=== PATIENT | male | born 1995 | race American Indian/Alaskan Native ===

== ENCOUNTER 2018-11-22 21:45 | Emergency (ER) | payer SELFPAY ==
[2018-11-22 22:18] VITALS: BP 150/85
== END 2018-11-23 00:59 | disposition left against medical advice (07) ==
LOC: ED 21:45
DX: R30.0 Dysuria (principal); Z53.21 Procedure and treatment not carried out due to patient leaving prior to being seen by health care provider

== ENCOUNTER 2018-11-27 22:18 | Emergency (ER) | payer SELFPAY ==
--- NOTE | 2018-11-27 22:50 | Emergency Department Report ---
ED Male HPI - General Chief complaint: Urogenital-Male Stated complaint: PAINFUL URINATING Time Seen by Provider: 11/27/18 22:48 Source: patient Mode of arrival: Ambulatory Limitations: No Limitations - History of Present Illness Initial comments: This is a 23-year-old male reports that he was exposed to chlamydia from his girlfriend. He says she tested positive and was treated and sent him to be treated. He denies any penile discharge report reports that he has some burning. Denies any abdominal or back pain. Denies any fever or chills. Den ies any blood in his urine. MD Complaint: other (exposure to chlamydia) Onset/Timin Radiation: none Severity scale (0 -10): 0 denies: discharge, swelling, mass, rash, urinary retention, blood in urine, dysuria, fever, nausea/vomiting, incontinence - Related Data Sexually active: Yes (history) Allergies Allergy/AdvReac Type Severity Reaction Status Date / Time niacin Allergy Hives Verified 11/22/18 22:18 ED Review of Systems ROS: Stated complaint: PAINFUL URINATING Other details as noted in HPI Constitutional: denies: chills, fever ENT: denies: throat pain Respiratory: denies: cough, shortness of breath Cardiovascular: denies: chest pain, palpitations, edema, syncope Gastrointestinal: denies: abdominal pain, nausea, vomiting Genitourinary: other (exposure to chlamydia). denies: urgency, dysuria, frequency, hematuria, discharge Musculoskeletal: denies: back pain, arthralgia, myalgia Skin: denies: rash Neurological: denies: headache ED Past Medical Hx - Past Medical History Previous Medical History?: No - Surgical History Past Surgical History?: No - Family History Family history: no significant - Social History Smoking Status: Current Every Day Smoker Substance Use Type: None ED Physical Exam - General Limitations: No Limitations General appearance: alert, in no apparent distress - Head Head exam: Present: atraumatic, normocephalic, normal inspection - Eye Eye exam: Present: normal appearance, PERRL, EOMI Pupils: Present: normal accommodation - ENT ENT exam: Present: normal exam, normal orophraynx, mucous membranes moist - Neck Neck exam: Present: normal inspection, full ROM. Absent: tenderness, lymphadenopathy - Respiratory Respiratory exam: Present: normal lung sounds bilaterally. Absent: respiratory distress, chest wall tenderness - Cardiovascular Cardiovascular Exam: Present: regular rate, normal rhythm, normal heart sounds - GI/Abdominal GI/Abdominal exam: Present: soft, normal bowel sounds. Absent: distended, tenderness, rigid - Extremities Exam Extremities exam: Present: normal inspection, full ROM, normal capillary refill, other (No cce. + 2 pulses in all extremities, no neurovascular compromise). Absent: tenderness, pedal edema, joint swelling - Back Exam Back exam: Present: normal inspection, full ROM, other (M elicited N difficu lties O away that he no chronic profile but no). Absent: tenderness, CVA tenderness (R), CVA tenderness (L) ED Course Vital Signs 11/27/18 22:28 Temperature 98.5 F Pulse Rate 98 H Respiratory 18 Rate Blood Pressure 141/62 O2 Sat by Pulse 100 Oximetry - Reevaluation(s) Reevaluation #1: 11/27/18 23:49 Patient treated for gonorrhea and chlamydia in emergency room with Rocephin and azithromycin. After observation, he had no adverse reaction so he was discharged home in stable condition. ED Medical Decision Making - Medical Decision Making This is a 23-year-old male here for STD treatment after his girlfriend told him that she was treated for chlamydia. He is here to be treated. Patient was given azithromycin 1 g by mouth to treat chlamydia and Rocephin 250 mg IM for gonorrhea. I discussed with him that he needs to practice safe sex and follow up with [facility] or [facility] in 7-10 days for STD testing. Patient agreed and discharged home in stable condition. Critical care attestation.: If time is entered above; I have spent that time in minutes in the direct care of this critically ill patient, excluding procedure time. ED Disposition Clinical Impression: Exposure to STD Disposition: DC-01 TO HOME OR SELFCARE Is pt being admited?: No Does the pt Need Aspirin: No Condition: Stable Instructions: Chlamydia Infection (ED), Sexually Transmitted Diseases (ED), Safe Sex (ED) Additional Instructions: Please practice safe sex Do not have any sexual activity for the next 2 weeks and within the next 7-10 days please go to [facility] to get STD check to make sure that you do not have STD. You were treated for gonorrhea and chlamydia in emergency room. Referrals: [facility] [Outside] - 7-10 days [facility] [Outside] - 7-10 days Forms: Work/School Release Form(ED)
[2018-11-27] MEDS ORDERED: ROCEPHIN IM ONE (23:29)
[2018-11-27] MEDS ORDERED: XYLOCAINE 1% MPF 5 mL INFILTRATI ONE (23:29)
[2018-11-27] MEDS ORDERED: ZITHROMAX PO ONE (23:29)
[2018-11-29 12:59] VITALS: BP 141/62
== END 2018-11-27 23:53 | disposition home or self-care (01) ==
LOC: ED 22:18
DX: Z20.2 Contact with and (suspected) exposure to infections with a predominantly sexual mode of transmission (principal); F17.200 Nicotine dependence, unspecified, uncomplicated; Z88.8 Allergy status to other drugs, medicaments and biological substances
CPT/HCPCS: 96372; 99282; J0696

== ENCOUNTER 2019-09-30 16:33 | Emergency (ER) | payer SELFPAY ==
[2019-09-30 16:39] VITALS: BP 166/76
--- NOTE | 2019-09-30 16:40 | Emergency Department Report ---
Blank Doc - Documentation Documentation: 24-year-old male that presents with chest pain. This initial assessment/diagnostic orders/clinical plan/treatment(s) is/are subject to change based on patient's health status, clinical progression and re- assessment by fellow clinical providers in the ED. Further treatment and workup at subsequent clinical providers discretion. Patient/guardians urged not to elope from the ED as their condition may be serious if not clinically assessed and managed. Initial orders include: 1- Patient sent to [facility] for further evaluation and treatment 2- EKG 3- CXR
--- NOTE | 2019-09-30 18:09 | XRay Report ---
CHEST PA AND LATERAL VIEWS INDICATION: Chest pain. COMPARISON: None. FINDINGS: Support devices: None. Heart: Within normal limits. Lungs/Pleura: No acute pulmonary or pleural findings. IMPRESSION: 1. No significant abnormality. Signer Name: Terrell James MD Signed: 09/30/2019 6:04 PM Workstation Name: [id number]
--- NOTE | 2019-09-30 18:57 | Emergency Department Report ---
ED Chest Pain HPI - General Chief Complaint: Chest Pain Stated Complaint: CHEST PAIN Time Seen by Provider: 09/30/19 16:39 Source: patient Mode of arrival: Ambulatory Limitations: No Limitations - History of Present Illness Initial Comments: This is a 24-year-old -[place]ian male who presents to the emergency room with substernal chest pain since this morning. Patient states he woke up with tightness in chest. He is a current smoker. No significant past medical history. Patient reports one episode last month for one day which resolved. 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 He denies radiating pain, fever, chills, cough, nausea, vomiting, or weakness. MD Complaint: chest pain -: This morning Onset: awoke with symptoms Pain Location: substernal Pain Radiation: none Severity: moderate Severity scale (0 -10): 6 Quality: tightness Consistency: intermittent Improves With: nothing Worsens With: nothing re: denies: nausea, vomting, diaphoresis, dyspnea, sense of impending doom Other Symptoms: denies: cough, fever, syncope, rash, acid taste in mouth, leg swelling, palpitations, burping Treatments Prior to Arrival: none Aspirin use within the Past 7 Days: (0) No - Related Data Allergies Allergy/AdvReac Type Severity Reaction Status Date / Time niacin Allergy Hives Verified 11/22/18 22:18 Heart Score - HEART Score History: Slightly suspicious EKG: Normal Age: < 45 Risk factors: No known risk factors Troponin: < normal limit HEART Score: 0 - Critical Actions Critical Actions: 0-3 pts:0.9-1.7%risk of adverse cardiac event.Candidate for discharge ED Review of Systems ROS: Stated complaint: CHEST PAIN Other details as noted in HPI Constitutional: denies: chills, fever ENT: as per HPI Respiratory: denies: cough, shortness of breath, wheezing Cardiovascular: chest pain. denies: palpitations Musculoskeletal: denies: back pain, joint swelling, arthralgia Skin: denies: rash, lesions Neurological: denies: headache, weakness, paresthesias Psychiatric: denies: anxiety, depression ED Past Medical Hx - Past Medical History Previous Medical History?: No - Surgical History Past Surgical History?: No - Social History Smoking Status: Current Every Day Smoker ED Physical Exam - General Limitations: No Limitations General appearance: alert, in no apparent distress, obese - ENT ENT exam: Present: mucous membranes moist - Respiratory Respiratory exam: Present: normal lung sounds bilaterally, chest wall tenderness. Absent: respiratory distress, wheezes, rales, rhonchi, stridor (tenderness along costochondral joint on the left, no erythema or swelling) - Cardiovascular Cardiovascular Exam: Present: regular rate, normal rhythm. Absent: systolic murmur, diastolic murmur, rubs, gallop - GI/Abdominal GI/Abdominal exam: Present: soft, normal bowel sounds. Absent: distended, tenderness, guarding, rebound, rigid - Neurological Exam Neurological exam: Present: alert, oriented X3, normal gait - Psychiatric Psychiatric exam: Present: normal affect, normal mood - Skin Skin exam: Present: warm, dry, intact, normal color. Absent: rash ED Course Vital Signs 09/30/19 16:37 Temperature 98.0 F Pulse Rate 67 Respiratory 16 Rate Blood Pressure 166/76 O2 Sat by Pulse 100 Oximetry ED Medical Decision Making - EKG Data -: No EKG Interpreted by Me (EKG interpreted by attending) EKG shows normal: sinus rhythm Rate: bradycardia - Radiology Data Radiology results: report reviewed CHEST PA AND LATERAL VIEWS INDICATION: Chest pain. COMPARISON: None. FINDINGS: Support devices: None. Heart: Within normal limits. Lungs/Pleura: No acute pulmonary or pleural findings. IMPRESSION: 1. No significant abnormality. - Medical Decision Making Patient was examined by me. Patient is nontoxic appearing and stable. Vitals are normal. Obtained EKG and x-ray of chest with no acute radiographic findings. EKG interpreted by the attending sinus bradycardia. On focal exam there is tenderness along osteochondral joints on the left.heart score is 0. No significant past medical history to believe acute [facility]. 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 Given analgesics while in the ER. Instructed to take [id number] ibuprofen, naproxen, or Tylenol for pain related to costochondritis. Patient informed of results. Instructed to take Tylenol or ibuprofen for pain. Follow up with PCP or return to the ER with worsening symptoms. Patient discharged home in stable condition. Critical care attestation.: If time is entered above; I have spent that time in minutes in the direct care of this critically ill patient, excluding procedure time. ED Disposition Clinical Impression: Acute costochondritis Chest pain Qualifiers: Chest pain type: other chest pain Qualified Code(s): R07.89 - Other chest pain; R07.8 - Other chest pain Disposition: TO HOME OR SELFCARE Is pt being admited?: No Condition: Stable Instructions: Chest Pain (ED) Additional Instructions: Take ibuprofen or Tylenol as needed for pain control. Follow up with primary care provider in 24-72 hours. Return to ER if chest pain unresolved, shortness of breath, or difficulty breathing. Referrals: [facility] [place] [Outside] - 3-[address] [facility] [Outside] - 3-5 Days [facility] [Outside] - 3-5 Days [facility] [Provider Group] - 3-5 Days Forms: Work/School Release Form(ED) Time of Disposition: 19:02
== END 2019-09-30 19:21 | disposition home or self-care (01) ==
LOC: ED 16:33
DX: M94.0 Chondrocostal junction syndrome [Tietze] (principal); F17.200 Nicotine dependence, unspecified, uncomplicated
CPT/HCPCS: 71046; 93005; 93010; 99283

== ENCOUNTER 2020-07-25 04:50 | Emergency (ER) | payer OTHER ==
[2020-07-25 05:37] VITALS: BP 147/81
--- NOTE | 2020-07-25 05:38 | XRay Report ---
RIGHT LONG FINGER 3 VIEWS INDICATION / CLINICAL INFORMATION: pain and swelling to right middle finger. COMPARISON: None available. FINDINGS: BONES/JOINT(S): No acute fracture or subluxation. No significant degenerative changes. SOFT TISSUES: Diffuse soft tissue swelling. No soft tissue gas or radiopaque foreign body. ADDITIONAL FINDINGS: None. Signer Name: Sincere Franklin MD Signed: 07/25/2020 5:33 AM Workstation Name: [id number]
[2020-07-25] MEDS ORDERED: LIDOCAINE (1%) 10 MG/1 ML VIAL 20 ML MDV INFILTRATI ONE (06:33)
[2020-07-25] MEDS ORDERED: oxyCODONE /ACETAMINOPHEN 5-325MG TAB PO ONE (06:33)
--- NOTE | 2020-07-25 06:36 | Event Note ---
ED Screening Note Date of service: 07/25/20 Time: 06:40 ED Screening Note: R middle finger pain and swelling x 3 days possible vance noted on exam denies any penetrating injuries, however he believes he injured the finger on a rail while helping his sister move on Friday This initial assessment/diagnostic orders/clinical plan/treatment(s) is/are subject to change based on patients health status, clinical progression and re- assessment by fellow clinical providers in the ED. Further treatment and workup at subsequent clinical providers discretion. Patient/guardian urged not to elope from the ED as their condition may be serious if not clinically assessed and managed. Initial orders include: I&D tray set up percocet 5 mg
--- NOTE | 2020-07-25 07:11 | Emergency Department Report ---
Abscess Boil HPI - HPI Chief Complaint: Extremity Injury, Upper Stated Complaint: SWOLLEN RT MIDDLE FINGER Time Seen by Provider: 07/25/20 07:02 Location: Upper Extremity Severity: Mild History: Yes Pain (woth swelling), No Fever, No Purulent Drainage, No Numbness, No Foreign Body, No Previous History, No Insect Bite HPI: This is a 25-year-old male nontoxic, well nourished in appearance, no acute signs of distress presents to the ED with c/o of redness, swelling, and pain to right middle finger. Patient denies any pus or drainage. Patient denies any fever, chills, nausea, vomiting, chest pain, shortness of breath, headache or stiff neck. Patient stated allergies to niacin. Denies any trauma or injuries. Home Medications: Previous Rx's Medication Instructions Recorded Last Taken Type Sulfamethoxazole/Trimethoprim 1 each PO BID #14 tablet 07/25/20 Unknown Rx [Bactrim DS TAB] Allergies/Adverse Reactions: Allergies Allergy/AdvReac Type Severity Reaction Status Date / Time niacin Allergy Hives Verified 11/22/18 22:18 ED Review of Systems ROS: Stated complaint: SWOLLEN RT MIDDLE FINGER Other details as noted in HPI Constitutional: denies: chills, fever Eyes: denies: eye pain, eye discharge, vision change ENT: denies: ear pain, throat pain Respiratory: denies: cough, shortness of breath, wheezing Cardiovascular: denies: chest pain, palpitations Endocrine: no symptoms reported Gastrointestinal: denies: abdominal pain, nausea, diarrhea Genitourinary: denies: urgency, dysuria Musculoskeletal: denies: back pain, joint swelling, arthralgia Skin: denies: rash, lesions Neurological: denies: headache, weakness, paresthesias Psychiatric: denies: anxiety, depression Hematological/Lymphatic: denies: easy bleeding, easy bruising ED Past Medical Hx - Past Medical History Previous Medical History?: No - Surgical History Past Surgical History?: No - Social History Smoking Status: Current Every Day Smoker - Medications Home Medications: Home Medications Medication Instructions Recorded Confirmed Last Taken Type Sulfamethoxazole/Trimethoprim 1 each PO BID #14 tablet 07/25/20 Unknown Rx [Bactrim DS TAB] ED Abscess Boil Physical Exam - Exam General: Vital signs noted. No distress. Alert and acting appropriately. Front/Back of Body, Lg (Color): 1 - Paronychia present Size: 2 cm Exam: Yes Tenderness, Yes Fluctuance, Yes Normal Neurologic Exam, Yes Normal Circulation, No Surrounding Cellulites/Erythema, No Lymphangitis, No Crepitation, No Heart Murmur I & D Note - I & D Note I & D Note: Patient had soaked finger with biatdine and warm water first. Under sterile field, I used Betadine to cleanse the area. I then used an 11 blade and inserted between the cuticle and nail bed for release and about 1 cc or purulent drainage noted. Significant decrease in swelling noted. A sterile 4 x 4 with tape has been applied as dressing. Bleeding is under control. Patient tolerated the procedure well with no signs of distress noted. ED Course Vital Signs 07/25/20 05:02 Temperature 98.0 F Pulse Rate 76 Respiratory 17 Rate Blood Pressure 147/81 O2 Sat by Pulse 99 Oximetry - Reevaluation(s) Reevaluation #1: 07/25/20 07:10 Patient is speaking in full sentences with no signs of distress noted. Critical care attestation.: If time is entered above; I have spent that time in minutes in the direct care of this critically ill patient, excluding procedure time. ED Medical Decision Making - Medical Decision Making This is a 25-year-old male that presents with paronychia. Patient is stable and was examined by me. This is incision and drainage and has been performed and patient tolerated well. A sterile dressing has been applied. Patient was educated on proper wound care. Patient is discharged with Bactrim. Patient was instructed to refer to Follow-up with a primary care doctor in 3-5 days or if symptoms worsen and continue return to emergency room as soon as possible. At time of discharge, the patient does not seem toxic or ill in appearance. No acute signs of distress noted. Patient agrees to discharge treatment plan of care. No further questions noted by the patient. ED Disposition Clinical Impression: Paronychia of right middle finger, Encounter for incision and drainage procedure Disposition: TO HOME OR SELFCARE Is pt being admited?: No Does the pt Need Aspirin: No Condition: Stable Instructions: Paronychia (ED), Incision and Drainage (ED) Additional Instructions: Follow-up with a primary care doctor in 3-5 days or if symptoms worsen and continue return to emergency room as soon as possible. Prescriptions: Sulfamethoxazole/Trimethoprim [Bactrim DS TAB] 1 each PO BID #14 tablet Referrals: [facility]IMARY [facility] [Referring] - 3-5 Days ANCA CULVER MD [Staff Physician] - 3-5 Days Forms: Work/School Release Form(ED)
== END 2020-07-25 08:40 | disposition home or self-care (01) ==
LOC: ED 04:50
DX: L03.011 Cellulitis of right finger (principal); Z48.817 Encounter for surgical aftercare following surgery on the skin and subcutaneous tissue; F17.200 Nicotine dependence, unspecified, uncomplicated; Z79.899 Other long term (current) drug therapy
CPT/HCPCS: 99283

== ENCOUNTER 2022-03-04 08:43 | Emergency (ER) | payer SELFPAY ==
[2022-03-04] MEDS ORDERED: CYCLOBENZAPRINE 10 MG TAB PO ONE (10:09)
[2022-03-04] MEDS ORDERED: KETOROLAC 10 MG TAB PO ONE (10:09)
--- NOTE | 2022-03-04 10:12 | Emergency Department Report ---
ED Extremity Problem HPI - General Chief complaint: Extremity Injury, Lower Stated complaint: LT HIP/LEG PAIN Time Seen by Provider: 03/04/22 09:26 Source: patient Mode of arrival: Ambulatory Limitations: No Limitations - History of Present Illness Initial comments: 25-year-old black male with no past medical history presents to the emergency department for evaluation of left hip pain. He states that he was playing with his daughter yesterday which included him acting like a pony that she was riding around, and it felt like something popped in his left hip area, and he has been having persistent left hip pain since then. He states that pain is worse with palpation and ambulation, but he has been able to ambulate on a lamp. He denies injury or trauma. MD Complaint: extremity pain -: Sudden, days(s) Location: left (1), lower extremity (Left hip) History of Same: No -: No myalgia, No arthralgia, No fever, No associated dyspnea, No associated chest pain Severity scale (0 -10): 7 Quality: aching Consistency: intermittent Worsens with: weight bearing, palpation Associated Symptoms: denies: chest pain, shortness of breath, fever, myalgias, arthralgias, rash - Related Data Previous Rx's Medication Instructions Recorded Last Taken Type Sulfamethoxazole/Trimethoprim 1 each PO BID #14 tablet 07/25/20 Unknown Rx [Bactrim DS TAB] Cyclobenzaprine [Flexeril] 10 mg PO TID PRN #21 tab 03/04/22 Unknown Rx Naproxen [Naprosyn] 500 mg PO BID #14 tab 03/04/22 Unknown Rx Allergies Allergy/AdvReac Type Severity Reaction Status Date / Time niacin Allergy Hives Verified 11/22/18 22:18 ED Review of Systems ROS: Stated complaint: LT HIP/LEG PAIN Other details as noted in HPI Comment: All other systems reviewed and negative Constitutional: denies: chills, fever Eyes: denies: eye pain, eye discharge Respiratory: denies: cough, shortness of breath, SOB with exertion, SOB at rest, wheezing Cardiovascular: denies: chest pain, palpitations, dyspnea on exertion, orthopnea Gastrointestinal: denies: abdominal pain, nausea, vomiting Genitourinary: denies: urgency, dysuria, frequency, hematuria, discharge, testicular pain Musculoskeletal: denies: back pain Skin: denies: rash, lesions Neurological: denies: headache, weakness ED Past Medical Hx - Past Medical History Previous Medical History?: No - Surgical History Past Surgical History?: No - Social History Smoking Status: Never Smoker - Medications Home Medications: Home Medications Medication Instructions Recorded Confirmed Last Taken Type Sulfamethoxazole/Trimethoprim 1 each PO BID #14 tablet 07/25/20 Unknown Rx [Bactrim DS TAB] Cyclobenzaprine [Flexeril] 10 mg PO TID PRN #21 tab 03/04/22 Unknown Rx Naproxen [Naprosyn] 500 mg PO BID #14 tab 03/04/22 Unknown Rx ED Physical Exam - General Limitations: No Limitations General appearance: alert - Head Head exam: Present: atraumatic, normocephalic - Eye Eye exam: Present: normal appearance. Absent: conjunctival injection - Neck Neck exam: Present: normal inspection, full ROM. Absent: tenderness, meningismus, lymphadenopathy, thyromegaly - Respiratory Respiratory exam: Present: normal lung sounds bilaterally. Absent: respiratory distress, wheezes, rales, rhonchi, stridor, chest wall tenderness - Cardiovascular Cardiovascular Exam: Present: regular rate, normal heart sounds - GI/Abdominal GI/Abdominal exam: Present: soft, normal bowel sounds. Absent: distended, tenderness, guarding, rebound, rigid - Expanded Lower Extremity Exam Left Hip exam: Present: normal inspection, full ROM, tenderness. Absent: swelling, abrasion, ecchymosis, deformity, crepidus, dislocation, erythema, shortening, pelvic stability Upper Leg exam: Present: normal inspection. Absent: tenderness Knee exam: Present: normal inspection. Absent: tenderness Lower Leg exam: Present: normal inspection. Absent: tenderness Ankle exam: Present: normal inspection. Absent: tenderness Foot/Toe exam: Present: normal inspection. Absent: tenderness Neuro vascular tendon exam: Present: no vascular compromise. Absent: pulse deficit, abnormal cap refill, motor deficit, sensory deficit, extremity cold to touch, pallor Gait: Positive: observed and limited by pain - Back Exam Back exam: Present: normal inspection. Absent: vertebral tenderness - Neurological Exam Neurological exam: Present: alert, oriented X3 - Psychiatric Psychiatric exam: Present: normal affect, normal mood - Skin Skin exam: Present: warm, dry, intact, normal color ED Course Vital Signs 03/04/22 03/04/22 03/04/22 09:03 09:08 10:46 Temperature 98.9 F 98.0 F 98.2 F Pulse Rate 69 56 L 64 Respiratory 18 18 16 Rate Blood Pressure 130/75 Blood Pressure 130/75 122/84 [Right] O2 Sat by Pulse 99 99 99 Oximetry ED Medical Decision Making - Medical Decision Making 25-year-old black male with no past medical history presents to the emergency department for evaluation of left hip pain. He states that he was playing with his daughter yesterday which included him acting like a pony that she was riding around, and it felt like something popped in his left hip area, and he has been having persistent left hip pain since then. He states that pain is worse with palpation and ambulation, but he has been able to ambulate on a lamp. He denies injury or trauma. No gross abnormalities noted on assessment. Patient noted to have musculoskeletal pain only. He will be treated with a one-time dose of Toradol and Flexeril while in the emergency department then discharged home with naproxen to take twice a day for the next 7 days along with as needed Flexeril as needed. He is advised to follow-up in the emergency department as needed. He verbalized understanding of and agreement with plan of care. Critical care attestation.: If time is entered above; I have spent that time in minutes in the direct care of this critically ill patient, excluding procedure time. ED Disposition Clinical Impression: Left hip pain Disposition: HOME / SELF CARE / HOMELESS Is pt being admited?: No Does the pt Need Aspirin: No Condition: Stable Instructions: How to Use Cold Therapy, [id number], Musculoskeletal Pain Additional Instructions: Take medications as prescribed. Follow-up with primary care provider if no improvement or worsening symptoms. Return to the emergency department as needed. Prescriptions: Cyclobenzaprine [Flexeril] 10 mg PO TID PRN #21 tab PRN Reason: Muscle Spasm Naproxen [Naprosyn] 500 mg PO BID #14 tab Referrals: ANCA CULVER MD [Staff Physician] - 3-5 Days Forms: Work/School Release Form(ED) Time of Disposition: 10:12
[2022-03-04 10:57] VITALS: BP 122/84
== END 2022-03-04 10:47 | disposition home or self-care (01) ==
LOC: ED 08:43
DX: M25.552 Pain in left hip (principal); Z91.09 Other allergy status, other than to drugs and biological substances; Z79.899 Other long term (current) drug therapy
CPT/HCPCS: 99282